=== PATIENT | female | born 1970 | race Two or more races ===

== ENCOUNTER → 2018-03-19 11:45 | Outpatient (CLI) | payer SELFPAY ==
--- NOTE | 2018-03-19 11:45 | EMB_PTH ---
PATIENT: GABBY LUCIANO LOC: [facility] U#:[id number] AGE/SX: 54/F ROOM: RE03/19/[address]: Dr. Rian Reilly MD : 1970 BED: DIS: SPEC #: [id number] RECD: 03/20/18 10:37 STATUS: JONAH JEFE #: [id number] MIROSLAVA: 03/19/18 11:[address]: Rian Reilly DEPT: SURGICAL PATHOLOGY RECD BY: Blas Millan Tissues: A - Endometrium, NOS B - Uterine cervix, NOS Procedures: Surgery Specimen Level IV HEADER OPERATION: Endometrial biopsy; cervical polyp removal PRE-OP DIAGNOSIS: N93.0, N84.1 TISSUE SUBMITTED: A - Endometrial biopsy, B - Cervical polyp MICROSCOPIC DIAGNOSIS A. Endometrium, biopsy: Secretory endometrium. B. Cervical polyp, biopsy: Fragments of benign endo/ectocervical polyp, inflamed. AM:darius 03/21/18 MICROSCOPIC DESCRIPTION Slides are reviewed. GROSS DESCRIPTION A - Received in fixative is one container labeled with the patient's name and designated endometrial biopsy. The specimen consists of multiple irregular fragments of beaver soft tissue that in aggregate measure 3 x 2.5 x 0.3 cm. The entire specimen is submitted in one cassette. B - Received in fixative is one container labeled with the patient's name and designated cervical polyp. The specimen consists of multiple fragments of beaver mucoid tissue that in aggregate measure 3 x 2.5 x 0.2 cm. The specimen is totally submitted in one cassette. / SJ:rg 03/20/18 TC:5 CPT: 00914 x2
== END ==
PROVIDERS: Referring Provider Obstetrics & Gynecology; Visit Provider Obstetrics & Gynecology
DX: N84.1 Polyp of cervix uteri (principal)
CPT/HCPCS: 88305

== ENCOUNTER → 2024-11-12 | Outpatient (CLI) | payer SELFPAY ==
--- OUTSIDE RECORDS SUMMARY | 2024-11-12 06:54 | XMS RPT_ITS | CCD ---
Author Organization [facility] Care Team Providers Care Steam Conditioning Operator Name Role Phone LAILA KIM Admitting Unavailable LAILA KIM Attending Unavailable LAILA KIM Primary Care Unavailable JENNIFER OJEDA Consulting Unavailable PROVIDER, UNKNOWN Consulting Unavailable PROVIDER, UNKNOWN Consulting Unavailable PROVIDER, UNKNOWN Consulting Unavailable JENNIFER OJEDA Admitting Unavailable JENNIFER OJEDA Attending Unavailable JENNIFER OJEDA Primary Care Unavailable JENNIFER OJEDA Consulting Unavailable PROVIDER, UNKNOWN Consulting Unavailable PROVIDER, UNKNOWN Consulting Unavailable PROVIDER, UNKNOWN Consulting Unavailable Lucila Hood Referring Unavailable Lucila Hood Attending Unavailable Care Physician, No Primary Primary Care Unava ilable Allergies Allergy Classification Reported Allergen(s) Allergy Type Date of Onset Reaction(s) Facility (1 source) Penicillins Drug allergy (disorder) [facility] Repository Problems Active Problems Problem Classification Problem Date Documented Da te Episodic/Chronic Other nervous system disorders (1 source) Paresthesia of skin; Translations: [Paresthesia of skin] Onset: 11-07-2024 Episodic Other non-traumatic joint disorders (1 source) Pain in right wrist; Translations: [Pain in right wrist] Onset: 11-07-2024 Episodic Other non-traumatic joint disorders (1 source) Pain in left wrist; Translations: [Pain in left wrist] Onset: 11-07-2024 Episodic Past or Other Problems Problem Classification Problem Date Documented Da te Episodic/Chronic Other screening for suspected conditions (not mental disorders or infectious disease) (4 sources) Encounter for screening mammogram for malignant neoplasm of breast; Translations: [Other abnormal and inconclusive findings on diagnostic imaging of breast] Onset: 03-28-2018 Episodic Results Test Name Value Interpretation Reference Range Facil ity MAMM DIGITAL UNILAT DIAGNOST IC RTon 10-22-2018 MAMM DIGITAL UNILAT DIAGNOSTIC [address] [address] Patient: GABBY LUCIANO Phone#: : 1970 Age: 48 Gender: F Pt. Type: Out Account: [id number] Location: Ordering: JENNIFER RUSTY Exam Date: 10/22/2018/8:24 Family Phys: Charge Code: [id number] Physician: Mcpherson Order #: [id number] DLP Dose#: PROCEDURE: MAMM RT UNILAT DIGITAL DIAGNOSITC WITH CAD COMPARISON: [facility], BILAT SCREENING, 03/28/2018, 8:46. [facility], RT SPOT/MAG DIGITAL, 03/28/2018, 9:15. INDICATIONS: Six Month Follow Up BREAST COMPOSITION: Heterogeneously dense, which could obscure small masses (51-75% glandular). FINDINGS: DIAGNOSTIC CATEGORY 1--NEGATIVE ASSESSMENT. RIGHT BREAST: No significant suspicious finding. Previously noted area of asymmetry is no longer demonstrated. RECOMMENDATIONS: ROUTINE MAMMOGRAM AND CLINICAL EVALUATION. PLEASE NOTE: A NORMAL MAMMOGRAM DOES NOT EXCLUDE THE POSSIBILITY OF BREAST CANCER. A CLINICALLY SUSPICIOUS PALPABLE LUMP SHOULD BE BIOPSIED. THIS FACILITY UTILIZES A REMINDER SYSTEM TO ENSURE THAT ALL PATIENTS RECEIVE REMINDER LETTERS FOR APPOINTMENTS. THIS INCLUDES REMINDERS FOR ROUTINE MAMMOGRAMS, DIAGNOSITC MAMMOGRAMS, OR OTHER BREAST IMAGING INTERVENTIONS WHEN APPROPRIATE. THIS PATIENT WILL BE PLACED IN THE APPROPRIATE REMINDER SYSTEM. Dictated by: Sharon Farley MD on 10/22/2018 at 9:29 Approved by: Sharon Farley MD on 10/22/2018 at 9:29 Normal [facility] MAMM DIGITAL BILAT SCREENon 03-28-2018 MAMM DIGITAL BILAT SCREEN [place] [address] Patient: GABBY LUCIANO Phone#: : 1970 Age: 47 Gender: F Pt. Type: Out Account: [id number] Location: Ordering: LAILA KIM Exam Date: 03/28/2018/8:46 Family Phys: JENNIFER OJEDA Charge Code: [id number] Physician: Mcpherson Order #: [id number] DLP Dose#: PROCEDURE: MAMM BILAT DIGITAL SCREENING WITH CAD COMPARISON: None. INDICATIONS: Screening BREAST COMPOSITION: Heterogeneously dense, which could obscure small masses (51-75% glandular). FINDINGS: DIAGNOSTIC CATEGORY 0--INCOMPLETE ASSESSMENT: NEED ADDITIONAL IMAGING EVALUATION. RIGHT BREAST: ASYMMETRY visible on only the oblique view, located in the central breast, at the posterior depth, with size of approximately 12 x 24 mm. Additional spot compression view be obtained. LEFT BREAST: No significant suspicious finding. RECOMMENDATIONS: SAME DAY DIAGNOSTIC MAMMOGRAM: RIGHT BREAST. A separate report will be provided. PLEASE NOTE: A NORMAL MAMMOGRAM DOES NOT EXCLUDE THE POSSIBILITY OF BREAST CANCER. A CLINICALLY SUSPICIOUS PALPABLE LUMP SHOULD BE BIOPSIED. THIS FACILITY UTILIZES A REMINDER SYSTEM TO ENSURE THAT ALL PATIENTS RECEIVE REMINDER LETTERS FOR APPOINTMENTS. THIS INCLUDES REMINDERS FOR ROUTINE MAMMOGRAMS, DIAGNOSITC MAMMOGRAMS, OR OTHER BREAST IMAGING INTERVENTIONS WHEN APPROPRIATE. THIS PATIENT WILL BE PLACED IN THE APPROPRIATE REMINDER SYSTEM. Dictated by: Sharon Farley MD on 03/28/2018 at 9:31 Approved by: Sharon Farley MD on 03/28/2018 at 9:31 Normal [facility] MAMM DIGITAL RT SPOT VIEWSon 03-28-2018 MAMM DIGITAL RT SPOT VIEWS [place] [address] Patient: GABBY LUCIANO Phone#: : 1970 Age: 47 Gender: F Pt. Type: Out Account: [id number] Location: Ordering: [facility] Exam Date: 03/28/2018/9:15 Family Phys: JENNIFER OJEDA Charge Code: [id number] Physician: Mcpherson Order #: [id number] DL Dose#: PROCEDURE: MAMM RT SPOT/MAG UNILAT DIGITAL WITH CAD COMPARISON: [facility], , BIL SCREENING, 03/28/2018, 8:46. INDICATIONS: Abnormal mammogram BREAST COMPOSITION: Heterogeneously dense, which could obscure small masses (51-75% glandular). FINDINGS: DIAGNOSTIC CATEGORY 3--PROBABLY BENIGN FINDING. THE FOLLOWING FINDING(S) HAS A HIGH PROBABILITY OF A BENIGN ETIOLOGY: RIGHT BREAST: No significant suspicious finding. Asymmetric fibroglandular tissue is demonstrated. Six-month follow mammogram is recommended to assess stability. RECOMMENDATIONS: SIX MONTH FOLLOW-UP DIAGNOSTIC MAMMOGRAM: RIGHT BREAST. PLEASE NOTE: A NORMAL MAMMOGRAM DOES NOT EXCLUDE THE POSSIBILITY OF BREAST CANCER. A CLINICALLY SUSPICIOUS PALPABLE LUMP SHOULD BE BIOPSIED. THIS FACILITY UTILIZES A REMINDER SYSTEM TO ENSURE THAT ALL PATIENTS RECEIVE REMINDER LETTERS FOR APPOINTMENTS. THIS INCLUDES REMINDERS FOR ROUTINE MAMMOGRAMS, DIAGNOSITC MAMMOGRAMS, OR OTHER BREAST IMAGING INTERVENTIONS WHEN APPROPRIATE. THIS PATIENT WILL BE PLACED IN THE APPROPRIATE REMINDER SYSTEM. Dictated by: Sharon Farley MD on 03/28/2018 at 9:53 Approved by: Sharon Farley MD on 03/28/2018 at 9:53 Normal [facility] Encounters Encounter Date Encounter Type Care Provider Facility Start: 11-12-2024 ambulatory [facility] Facil ity:[facility] Start: 10-22-2018 End: 10-22-2018 Patient encounter procedure JENNIFER OJEDA [facility] Start: 03-28-2018 End: 03-28-2018 Patient encounter procedure LAILA KIM [facility] Payers Date Payer Category Payer Self-pay 1970 Unknown [id number] 1970 Unknown [id number] [employer] ( [employer] others) [id number] Unknown Unknown [id number] Summary Purpose Family History No Family History Records FoundNo Family History Records Found Advance Directives No Advanced Directives Records FoundNo Advanced Directives Records Found Additional Source Comments INFORMATION SOURCE (unrecogn ized section and content) DATE CREATED AUTHOR 10/22/2018 [facility] DATE CREATED AUTHOR AUTHOR'S ORGANIZ ATION 11/08/2024 [facility] FOR RECORDS PERTAINING TO PATIENTS WHO ARE OR HAVE BEEN ENROLLED IN A CHEMICAL DEPENDENCY/SUBSTANCEABUSE PROGRAM, SOME INFORMATION MAY BE OMITTED. This clinical summary was aggregated from multiple sources. Caution should be exercised in using it in the provision of clinical care. This summary normalizes information from multiple sources, and as a consequence, information in this document may materially change the coding, format and clinical context of patient data. In addition, data may be omitted in some cases. CLINICAL DECISIONS SHOULD BE BASED ON THE PRIMARY CLINICAL RECORDS. [facility] provides no warranty or guarantee of the accuracy or completeness of information in this document.
--- NOTE | 2024-11-12 09:37 | NEURO ---
NCS and/or EMG Patient Report Ordering Doctor: Lucila Herrmann DATE OF SERVICE: 11/12/24 Alana presents for electrodiagnostic testing of the upper limbs. She reports numbness and tingling in both hands. Electrodiagnostic findings: Median motor nerve demonstrates prolonged distal latency bilaterally with normal amplitude and borderline reduced conduction velocity in the left side. Ulnar motor response within normal limits bilaterally, including conduction across the elbow. Borderline prolonged right median F?wave. Prolonged median sensory latency at the wrist bilaterally. Normal ulnar and radial sensory responses. Needle EMG testing was performed in the upper limbs. All muscles tested showed no evidence of denervation with normal motor unit action potentials. Electrodiagnostic impression: This is an abnormal study in the upper limbs 1. Electrodiagnostic findings suggestive of bilateral median mononeuropathy. This is consistent with a mild bilateral carpal tunnel syndrome. [facility] Codes Neurology Neurology Interp Codes: 97229-02 Musc test done w/n test comp (interp) (2) and 71911-69 Nrv cndj test 9-10 studies (interp)
== END | disposition home or self-care (01) ==
LOC: PSN 06:52
PROVIDERS: Referring Provider Physician Assistant; Visit Provider Physician Assistant
DX: R20.2 Paresthesia of skin (principal); M25.531 Pain in right wrist; M25.532 Pain in left wrist
CPT/HCPCS: 95886; 95911